=== PATIENT | male | born 1975 | race Two or more races ===

== ENCOUNTER 2019-06-21 12:35 | Inpatient (IN) | payer OTHER ==
[2019-06-21 14:51] VITALS: BMI 20.3
--- NOTE | 2019-06-21 15:59 | HP ---
CIWA Score Nausea/Vomitin-No Nausea/No Vomiting Muscle Tremors: None Anxiety: 1-Mildly Anxious Agitation: 0-Normal Activity Paroxysmal Sweats: No Perspiration Orientation: 1-Uncertain about Date Tacttile Disturbances: 0-None Auditory Disturbances: 0-None Visual Disturbances: 0-None Headache: 0-None Present CIWA-Ar Total Score: 2 - Admission Criteria OASAS Guidelines: Admission for Medically Managed Detox: Requires at least one of the followin. CIWA greater than 12 2. Seizures within the past 24 hours 3. Delirium tremens within the past 24 hours 4. Hallucinations within the past 24 hours 5. Acute intervention needed for co occurring medical disorder 6. Acute intervention needed for co occurring psychiatric disorder 7. Severe withdrawal that cannot be handled at a lower level of care (continued vomiting, continued diarrhea, abnormal vital signs) requiring intravenous medication and/or fluids 8. Admission [facility] - HPI Allergies/Adverse Reactions: Allergies Allergy/AdvReac Type Severity Reaction Status Date / Time No Known Allergies Allergy Verified 06/21/19 14:48 History of Present Illness: pt here requesting detox from etoh use , reports 1 pint vodka almost daily since 2-3 weeks ago , denies blackouts, tremors or seizures , reports he starts drinking around noon - 5 pm , denies symptoms on the days he is not drinking , states 2/2 family intervention went to [facility] and was given meds in [place] and sent to this facility , denies current symptoms , latest etoh use was yesterday . repoerts first age of use 20 , progresisvely increased amounts since 32's . denies illicits tobacco : 1/2 ppd pmhx : denies pshx : denies psych : denies shx : lives w/ family , unemployed Exam Limitations: No Limitations - Ebola screening Have you traveled outside of the country in the last 21 days: No Have you had contact with anyone from an Ebola affected area: No Do you have a fever: No - Review of Systems Constitutional: No Symptoms Reported EENT: reports: No Symptoms Reported Respiratory: reports: No Symptoms reported Cardiac: reports: No Symptoms Reported GI: reports: No Symptoms Reported : reports: No Symptoms Reported Musculoskeletal: reports: No Symptoms Reported Integumentary: reports: No Symptoms Reported Neuro: reports: See HPI Endocrine: reports: No Symptoms Reported Psychiatric: reports: Orientated x3, Anxious Patient History - Smoking Cessation Smoking history: Current every day smoker Have you smoked in the past 12 months: Yes Hx Chewing Tobacco Use: No Initiated information on smoking cessation: No - Substances abused Alcohol Substance route: Oral Frequency: Daily Amount used: 1 PINT OF VODKA Age of first use: 20 Date of last use: 06/19/19 Admission Physical Exam [facility] - Vital Signs Vital Signs: Vital Signs - 24 hr 06/21/19 06/21/19 14:42 15:06 Temperature 98.7 F 98.7 F Pulse Rate 82 82 Respiratory 17 17 Rate Blood Pressure 114/77 114/77 - Physical General Appearance: Yes: No Apparent Distress HEENTM: Yes: Hearing grossly Normal, Normocephalic, Normal Voice Respiratory: Yes: Lungs Clear, Normal Breath Sounds, No Respiratory Distress, No Accessory Muscle Use Neck: Yes: No masses,lesions,Nodules, Trachea in good position Cardiology: Yes: Regular Rhythm, Regular Rate, S1, S2 Abdominal: Yes: Non Tender, Soft Musculoskeletal: Yes: Gait Steady Extremities: Yes: Non-Tender Neurological: Yes: Fully Oriented, Alert, Motor Strength 5/5 Integumentary: Yes: Warm - Diagnostic (1) Alcohol abuse Current Visit: Yes Status: Acute Breathalyzer - Breathalyzer Breathalyzer: 0 Urine Drug Screen - Test Device Lot number: [id number] Expiration date: 03/29/21 - Control Is test valid?: Yes - Results Drug screen NEGATIVE: No Urine drug screen results: BZO-Benzodiazepines Inpatient Rehab Admission - Rehab Decision to Admit Inpatient rehab admission?: Yes - Initial Determination Are CD services needed?: Yes Free of communicable disease: Yes Not in need of hospitalization: Yes - Rehab Admission Criteria Previous failed treatment: No Poor recovery environment: No Comorbidities: No Lacks judgement: Yes Patient is meeting Inpatient Rehab admission criteria:: Yes
[2019-06-21] MEDS ORDERED: MAGNESIUM CITRATE 300 ML BOTTLE PO PRN (16:36)
[2019-06-21] MEDS ORDERED: ACETAMINOPHEN 325 MG TABLET (FP) PO PRN (16:36)
[2019-06-21] MEDS ORDERED: LOPERAMIDE HCL 2 MG CAPSULE PO PRN (16:36)
[2019-06-21] MEDS ORDERED: guaiFENesin 200 MG/10 ML 10 ML UNIT-DOSE CUPS PO PRN (16:36)
[2019-06-21] MEDS ORDERED: IBUPROFEN 400 MG TABLET (FP) PO PRN (16:36)
[2019-06-21] MEDS ORDERED: MAGNESIUM HYDROX 2400MG/30ML ORAL SUSPENSION 30 ML CUP PO PRN (16:36)
[2019-06-21] MEDS ORDERED: MENTHOL/PHENOL 1 EACH UD MM PRN (16:36)
[2019-06-21] MEDS ORDERED: P-EPHED 60MG/TRIPROLIDI 2.5MG TABLET PO PRN (16:36)
[2019-06-21] MEDS ORDERED: MAG HYDROX/AL HYDROX/SIMETH 30 ML UNIT-DOSE CUP PO PRN (16:36)
[2019-06-21] MEDS ORDERED: MELATONIN 5 MG TABLETS PO PRN (22:00)
[2019-06-21] MEDS ORDERED: THIAMINE HCL 100 MG TABLET (FP) PO SCH (22:00)
[2019-06-22 06:49] VITALS: BP 137/90; PULSE 78; TEMP 98.1
[2019-06-22] MEDS ORDERED: PRENATAL VITAMINS W/ FOLIC ACID TABLET (FP) PO SCH (10:00)
--- NOTE | 2019-06-22 10:59 | PN ---
[facility] Progress Note (SOAP) Subjective: PT IS A 43 Y/O MALE WHO WAS ADMITTED YESTERDAY(SEE H/P) TO REHAB FROM [facility]. PT REPORTS HE WAS AT [facility] FOR 3 DAYS WITH ALCOHOL INTOXICATION AND WAS REFERRED HERE. THIS MORNING, PT MET WITH HIS COUNSELOR AND SUBSEQUENTLY SAW ME STATING HE IS SIGNING OUT TODAY. PT STATES HE WANTS TO GO TO AN OUTPATIENT PROGRAM IN [place] AND BE HOME WITH FAMILY IN [place]. PT DENIES TREMORS, SWEATS,DIZZINESS,BODY ACHES, NAUSEA/VOMITING OR C/P. DENIED PMHx AND PPSYCHx. NOT ON ANY HOME MEDS. PT REPORTS HE HAS NO CURRENT PCP HIS PREVIOUS ONE MOVED [facility]. PT HAS BEEN REFERRED TO [facility] AT [facility] ON [address] [place] [address]. PT REFERRED TO PRIMARY CARE TO DR. PERLA UREÑA-# [phone]. DENIES S/H/I. Objective: 06/22/19 10:59 Vital Signs - 24 hr 06/21/19 06/21/19 06/21/19 14:42 15:06 17:25 Temperature 98.7 F 98.7 F 98.5 F Pulse Rate 82 82 73 Respiratory 17 17 16 Rate Blood Pressure 114/77 114/77 118/69 06/22/19 06/22/19 06/22/19 00:30 03:30 06:30 Temperature Pulse Rate Respiratory 18 18 18 Rate Blood Pressure 06/22/19 06:48 Temperature 98.1 F Pulse Rate 78 Respiratory 16 Rate Blood Pressure 137/90 Home Medications Medication Instructions Recorded NK [No Known Home Medication] 06/21/19 LABS DRAWN THIS MORNING AND RESULT IS PENDING. CARDIAC:S1 S2, RRR, NO MM/R LUNGS:CTA,PATIENCE. ABDOMEN:SOFT,+BS;FLAT, NT/ND EXTREMITIES:WNL-NO E/C/C. Assessment: 06/22/19 11:01 AUD NAD MEDICALLY STABLE 06/22/19 11:16 [facility] Inpatient Services Medical - Diagnosis (1) Alcohol abuse Current Visit: Yes Status: Chronic Initialized on 06/22/19 11:11 - END OF NOTE Plan: PT SIGNED OUT AMA FOLLOW UP WITH CD AFTER[facility]ARE RECOMMENDED. FOLLOW UP WITH PRIMARY CARE WITH DR. PERLA UREÑA WITHIN 1-2 WEEKS AFTER LEAVING TREATMENT @ (PH: ). PT TO CALL FOR APPOINTMENT.
[2019-06-22 12:21] LABS: ALBUMIN 3.4 g/dl (3.4-5.0); BILIRUBIN,TOTAL 1.1 mg/dL (0.2-1); BLOOD UREA NITROGEN 6.2 mg/dL (7-18); CALCIUM 9.5 mg/dL (8.5-10.1); CREATININE 0.8 mg/dL (0.55-1.3); POTASSIUM 4.5 mmol/L (3.5-5.1); TOT PROT 7.7 g/dl (6.4-8.2)
[2019-06-22 12:22] LABS: HEMATOCRIT 46.1 % (35.4-49); HEMOGLOBIN 15.1 GM/dL (11.7-16.9); MCH 28.8 pg (25.7-33.7); MCHC 32.8 g/dl (32.0-35.9); MEAN PLT VOLUME 9.9 fl (7.5-11.1); PLATELET COUNT 135 K/MM3 (134-434); RBC 5.24 M/mm3 (4.00-5.60); RDW 15.3 % (11.9-15.9); WHITE BLOOD COUNT 5.3 K/mm3 (4.0-10.0)
== END 2019-06-22 11:30 | disposition left against medical advice (07) | DRG 770 ==
LOC: YASAS 12:35 → Y5N 16:34
PROVIDERS: ADMIT Neuromusculoskeletal Medicine & OMM; ATTEND Neuromusculoskeletal Medicine & OMM
PROC: HZ42ZZZ Group Counseling for Substance Abuse Treatment, Cognitive-Behavioral (ICD-10-PCS; principal; 2019-06-21)
DX: F10.20 Alcohol dependence, uncomplicated (principal); F17.210 Nicotine dependence, cigarettes, uncomplicated
CPT/HCPCS: 36415; 80053; 85027; 86593